=== PATIENT | female | born 1965 | race African-American/Black ===

== ENCOUNTER 2022-05-23 09:36 | Inpatient (IN) | payer MEDICARE, OTHER ==
[~2022-05-23] VITALS: Ht 182.9 cm; Wt 113.4 kg
[2022-05-23 10:12] LABS: CARBON DIOXIDE 30 mmol/L (21-32); CHLORIDE 105 mmol/L (98-107); CREATININE 0.9 mg/dL (0.6-1.3); GLUCOSE 129 mg/dL (74-106); UREA NITROGEN, BLOOD 25 mg/dL (7-18)
[2022-05-23 10:15] LABS: HEMATOCRIT 36.5 % (31.2-41.9); MEAN CORPUSCULAR VOLUME 86.8 fL (75.5-95.3); PLATELET COUNT (AUTO) 208 K/uL (179-408)
[2022-05-23 10:17] LABS: ALANINE AMINOTRANSFERASE 35 U/L (14-59); ALKALINE PHOSPHATASE 103 U/L (50-136); ASPARTATE AMINOTRANSFERASE 21 U/L (15-37); BILIRUBIN,DIRECT 0.1 mg/dL (0.0-0.2); BILIRUBIN,TOTAL 0.1 mg/dL (0.2-1.0); TOTAL PROTEIN, SERUM 8.6 g/dL (6.4-8.2)
[2022-05-23 10:19] LABS: ETHANOL < 3 MG/DL (0-0)
--- NOTE | 2022-05-23 10:19 | NUR ---
Rox silverman in ED - 05/23/22 at 1026 by NESTOR Patient is medically cleared for psych evaluation. Nicky Braxton was called, pending arrival to .
--- NOTE | 2022-05-23 10:20 | NUR ---
Notified Nicky Braxton that patient is medically cleared. Stated either her or Art will come and assess patient as soon as they can.
[2022-05-23 10:21] LABS: ACETAMINOPHEN < 2.0 ug/mL (10-30)
--- NOTE | 2022-05-23 10:22 | NUR ---
Urine collected and taken to LAB. COVID swab and MRSA swab collected and sent to LAB.
[2022-05-23 10:26] LABS: *BILIRUBIN,URIN NEGATIVE (NEGATIVE); *BLOOD, URINE NEGATIVE (NEGATIVE); *CLARITY,URINE CLEAR (CLEAR); *COLOR,URINE YELLOW (YELLOW); *KETONES,URINE NEGATIVE (NEGATIVE); *UROBILINOGEN,URINE 0.2 E.U./dl (NORMAL); LEUKOCYTE ESTERASE ,URINE NEGATIVE (NEGATIVE); NITRITE, URINE NEGATIVE (NEGATIVE); UGLUCOSE NEGATIVE (NEGATIVE)
[2022-05-23] MEDS ORDERED: LACT10SO58 PO (10:28)
[2022-05-23] MEDS ORDERED: DOCU-141 PO (10:28)
[2022-05-23] MEDS ORDERED: MULT-594 PO (10:28)
[2022-05-23] MEDS ORDERED: MIRT-93 PO (10:28)
[2022-05-23] MEDS ORDERED: ACET-2154 PO ×2 (10:28)
[2022-05-23] MEDS ORDERED: APIX5TAB PO (10:28)
[2022-05-23] MEDS ORDERED: BENZ0.5T43 PO (10:28)
[2022-05-23] MEDS ORDERED: SENN-261 PO (10:28)
[2022-05-23] MEDS ORDERED: ASCO500C18 PO (10:28)
[2022-05-23] MEDS ORDERED: ACET-73 PO (10:28)
[2022-05-23] MEDS ORDERED: LEVO25TA9 PO (10:28)
[2022-05-23] MEDS ORDERED: BISA10SU61 RC (10:28)
[2022-05-23] MEDS ORDERED: OLAN10TA3 PO (10:28)
[2022-05-23] MEDS ORDERED: ZINC1CAP3 PO (10:28)
[2022-05-23] MEDS ORDERED: OXCA150T5 PO (10:28)
[2022-05-23] MEDS ORDERED: QUET200T PO (10:28)
[2022-05-23] MEDS ORDERED: DIVA-78 PO (10:28)
[2022-05-23] MEDS ORDERED: MAGN400O6 PO (10:28)
[2022-05-23] MEDS ORDERED: LEVE1000 PO (10:28)
[2022-05-23] MEDS ORDERED: FLUO40CA49 PO (10:28)
[2022-05-23] MEDS ORDERED: FURO40TA5 PO (10:28)
[2022-05-23] MEDS ORDERED: CHOL1CRY2 PO (10:28)
[2022-05-23] MEDS ORDERED: SPIR25TA6 PO (10:28)
[2022-05-23 10:38] LABS: *AMPHETAMINE, URINE NEGATIVE (NEGATIVE); *CANNABINOID, URINE NEGATIVE (NEGATIVE); *COCCAINE, URINE NEGATIVE (NEGATIVE); *OPIATE, URINE NEGATIVE (NEGATIVE); *PHENCYCLIDINE SCREEN,URINE NEGATIVE (NEGATIVE)
--- NOTE | 2022-05-23 11:01 | NUR ---
Recieved a call from pt's conservator as well as brother, Michael. He is asking to be updated with plan of care for his sister.
--- NOTE | 2022-05-23 11:10 | NUR ---
Pt is resting w/ both eyes closed, NAD noted.
[2022-05-23] MEDS ORDERED: ACETAMINOPHEN 325 MG TABLET-SA PATIENTS-PAIN ONLY PO PRN (11:45)
[2022-05-23] MEDS ORDERED: BISACODYL 10 MG SUPP.RECT RC PRN (11:45)
[2022-05-23] MEDS ORDERED: MAGNESIUM HYDROXIDE 30 ML LIQUID UDC PO PRN ×2 (11:45→14:00)
[2022-05-23] MEDS ORDERED: ACETAMINOPHEN ES 500 MG TABLET PO PRN (11:45)
--- NOTE | 2022-05-23 11:46 | NUR ---
Art Capilla BACTERIOLOGIST FISHERY at the bedside for psych eval.
--- NOTE | 2022-05-23 12:00 | NUR ---
Pt placed on 5150 hold for GD by A Angie KELLERW. Port a Cath access removed per nursing speech pathology supervisor, Miladis. no bleeding noted at the site, pressure dressing applied.
--- NOTE | 2022-05-23 13:17 | NUR ---
Pt transfered to MHU via [facility]. Room 145A.
--- NOTE | 2022-05-23 13:20 | NUR ---
GPS: RECEIVED REPORT FROM LISA, ED RN FOR PT TO BE ADMITTED AT THE UNIT. PT FROM [facility] TO BE ADMITTED FOR GRAVE DISABILITY.
[2022-05-23 13:30] VITALS: BP 134/61
--- NOTE | 2022-05-23 13:30 | NUR ---
GPS: RECEIVED PT IN THE UNIT, WHEELED FROM ED VIA [facility]. PT QUIET, DENIES ANY PAIN, NO ANXIETY NOTED. PT WAS ASSISTED WITH TRANSFER FROM [facility] TO BED BY 6 STAFFS. PER ENDORSEMENT REPORT, PT CAME FROM [facility] VIA AMBULANCE TRANSPORTATION AND ADMITTED DUE TO INCREASED HALLUCINATIONS, SUICIDAL IDEATION AND THOUGHTS OF HURTING OTHERS. PT WAS DISORGANIZED AND VERY SLOW RESPONSE, IMPAIRED JUDGEMENT, POOR INSIGHT AND IMPULSE CONTROL, UNABLE TO PROVIDE FOR HER FOOD, [facility] AND CLOTHING DUE TO MENTAL DISORDER. PT ON FULL CODE. PER ED RN REPORT, PT HAS PSEUDO-SEIZURE EPISODE. PT ALERT AND ORIENTED TO NAME AND PLACE. DENIES PAIN OR DISCOMFORT.
[2022-05-23] MEDS ORDERED: ACETAMINOPHEN 325 MG TABLET PO PRN (14:00)
[2022-05-23] MEDS ORDERED: MAG HYDROX/AL HYDROX/SIMETH 30 ML LIQUID UDC PO PRN (14:00)
[2022-05-23] MEDS ORDERED: BLOOD SUGAR DIAGNOSTIC 1 EACH STRIP VI ONE (14:15)
--- NOTE | 2022-05-23 14:22 | NUR ---
GPS: NURSE AND STAFF ON BEDSIDE WITH ECG PERSONNEL WITNESS PT HAVING A BLANK STARE AND NOT RESPONDING TO VOICE AND STIMULI. PT HAVING AN EPISODE OF SEIZURE, PT WAS REPOSITIONED ON SIDE LYING POSITION ON BED AND PER NURSE ICE RESURFACING MACHINE OPERATORS, TO TRANSFER THE PT TO ED,WHEELED PT TO ED FOR FURTHER EVALUATION AND TREATMENT. PSYCHIATRIST AND DIE MOUNTER MADE AWARE. VITAL SIGNS ON ADMISSION TO UNIT WAS BP 134/71 T P97.3F HR82 R 16 O2SAT 98%RA.
--- NOTE | 2022-05-23 15:30 | NUR ---
GPS: PT RE-ADMITTED TO THE UNIT PER NURSING MACHINE CHAIN MAKER AND BEHAVIORAL HEALTH DIRECTOR AND MD CLEARANCE. PT WAS SEEN BY AN SUPERINTENDENT TRANSPORTATION IN THE UNIT AND PT WAS ALERT TO NAME AND PLACE. VERBALLY RESPONSIVE TO QUESTIONS ASKED. PT WAS PLEASANT AND DENIES ANY PAIN OR DISCOMFORT. SHE WAS GLAD WHEN BILINGUAL RECEPTIONIST PLACE THE BED ON SITTING POSITION REQUESTED BY PT. NO AGITATION NOTED AT THIS TIME. WILL OBSERVE PT FOR ANY EPISODE.
[2022-05-23 16:00] VITALS: BP 122/65
[2022-05-23] MEDS ORDERED: DIVALPROEX 500 MG TABLET.DR PO SCH (17:00)
[2022-05-23] MEDS ORDERED: OXCARBAZEPINE 150 MG TABLET PO SCH (17:00)
[2022-05-23] MEDS: APIXABAN 5 MG TABLET PO SCH (17:35)
[2022-05-23] MEDS: BENZTROPINE MESYLATE 0.5 MG TABLET PO SCH (17:37)
[2022-05-23] MEDS: levETIRAcetam 500 MG TABLET PO SCH (17:37)
--- NOTE | 2022-05-23 18:30 | NUR ---
GPS: WENT TO SEE PT IN THE ROOM, PT WAS QUIET AND BASICALLY ALERT AND ORIENTED AND EVENTUALLY ASK SWITCHBOARD WIRER IF SHE CAN TRANSFER TO OTHER ROOM. SWITCHBOARD WIRER ASKED PT WHY, PT ANSWERED "THERE'S SNAKES IN THE ROOM UNDER THE TABLE", RE-ORIENTED PT TO REALITY AND TURNED ON LIGHTS. BEFORE LEAVING, PT STATED "I'M JUST KIDDING, AND SHE LAUGHED".
[2022-05-23 20:45] VITALS: BP 130/79
[2022-05-23] MEDS: TEMAZEPAM 7.5 MG CAPSULE PO PRN (20:45)
[2022-05-23] MEDS: SENNOSIDES 1 TABLET PO SCH (20:45)
[2022-05-23] MEDS: LORAZEPAM 0.5 MG TABLET PO PRN (23:27)
--- NOTE | 2022-05-24 04:28 | NUR ---
Received patient in room, A&Ox2, responsive to verbal and tactile stimuli. Patient denies SI, states she's "FINE" when asked how she feels. No apparent distress this time. Patient requires maximum assistance in all aspect of care. Remains in bed d/t BLE weakness. Provide snacks w/ good appetite. Compliant with medications. Temazepam given. Effective. slept 5.30 hours during shift. Patient made statement on having seizures in her sleep. No noted seizures observed during shift. Ativan given for anxiety. Fall and seizure precautions in place. closely monitoring observed.
[2022-05-24] MEDS: LEVOTHYROXINE SODIUM 25 MCG TABLET PO SCH (06:10)
[2022-05-24 07:11] LABS: HEMATOCRIT 33.9 % (31.2-41.9); MEAN CORPUSCULAR HEMOGLOBIN 28.6 uug (24.7-32.8); MEAN CORPUSCULAR VOLUME 87.8 fL (75.5-95.3); PLATELET COUNT (AUTO) 196 K/uL (179-408)
[2022-05-24 07:30] VITALS: BP 119/71
[2022-05-24 07:34] LABS: BILIRUBIN,TOTAL 0.2 mg/dL (0.2-1.0); CREATININE 0.9 mg/dL (0.6-1.3); POTASSIUM 4.7 mmol/L (3.5-5.1)
[2022-05-24] MEDS: DOCUSATE SODIUM 100 MG CAPSULE PO SCH (08:54)
[2022-05-24] MEDS: ASCORBIC ACID 500 MG TABLET PO SCH (08:54)
[2022-05-24] MEDS: levETIRAcetam 500 MG TABLET PO SCH ×2 (08:54→17:42)
[2022-05-24] MEDS: BENZTROPINE MESYLATE 0.5 MG TABLET PO SCH ×2 (08:54→17:42)
[2022-05-24] MEDS: FUROSEMIDE 40 MG TABLET PO SCH (08:54)
[2022-05-24] MEDS: SPIRONOLACTONE 25 MG TABLET PO SCH (08:54)
[2022-05-24] MEDS: CHOLECALCIFEROL 1,000 UNIT TABLET PO SCH (08:54)
[2022-05-24] MEDS: ZINC SULFATE 220 MG CAPSULE PO SCH (08:54)
[2022-05-24] MEDS: MULTIVITAMINS,THERAPEUTIC TABLET PO SCH (08:54)
[2022-05-24] MEDS: APIXABAN 5 MG TABLET PO SCH ×2 (08:55→17:51)
[2022-05-24] MEDS: LACTULOSE 20 G/30 ML LIQUID UDC PO SCH (08:56)
[2022-05-24] MEDS ORDERED: Medication Not On Formulary EA (Multivitamins (Multivitamin) 1 TAB) PO SCH (09:00)
[2022-05-24] MEDS ORDERED: CHOLECALCIFEROL 50 MCG PO SCH (09:00)
[2022-05-24] MEDS ORDERED: Medication Not On Formulary EA (Ascorbic Acid (Vitamin C) 1 CAP) PO SCH (09:00)
--- NOTE | 2022-05-24 10:25 | NUR ---
GPS: PT RECEIVED ON BED. ALERT AND VERBALLY RESPONSIVE. OFFERED FOOD AND PT ATE INDEPENDENTLY. PT IS QUIET AND CALM. NO AGITATION OR ANXIETY NOTED. PHYSICAL THERAPIST CAME TO EVALUATE PT AND REPORTED THAT PT IS HAVING SEIZURE. UPON ASSESSMENT, PT HAD EPISODE OF PSEUDO-SEIZURE AND PT WAS OBSERVED AND MAINTAINED ON SAFETY OF BED. PT EYES SEEMS FOLLOWING DIRECTIONS OF STAFF, NOT MOVING. AFTER THE EP[ISODE, OFFERED MEDICATION AND PT TOLERATED WELL AND STATED "I LIKE ORANGE JUICE". PT SEEN BY PSYCHIATRIST AND E D TECH TODAY.
[2022-05-24] MEDS: DIVALPROEX 500 MG TABLET.DR PO SCH ×2 (11:26→20:31)
[2022-05-24] MEDS: OLANZAPINE 5 MG TABLET PO SCH ×2 (12:21→17:42)
[2022-05-24 16:00] VITALS: BP 124/70
--- NOTE | 2022-05-24 18:15 | NUR ---
GPS: PT ISOLATIVE, STAYING IN THE ROOM THE WHOLE TIME. PT WITH EPISODE OF SCREAMING A WAY TO GET ATTENTION. ADVISED PT NOT TO SCREAM AND BE PATIENT. PT ABLE TO UNDERSTAND AND APOLOGIZED AFTERWARDS. PT HAVE BIG APPETITE, ASKING FOR SNACKS. COMPLIANT WITH CARE AND MEDS. BED BATH GIVEN AND TOLERATED WELL BY PT. NO AGITATION NOTED.
[2022-05-24 19:58] VITALS: BP 128/79
[2022-05-24] MEDS: SENNOSIDES 1 TABLET PO SCH (20:31)
[2022-05-24] MEDS: LORAZEPAM 0.5 MG TABLET PO PRN (20:31)
--- NOTE | 2022-05-25 05:58 | NUR ---
This patient screamed , clapped her hands and was demanding all during the night. No regard for her room mates that were trying to sleep. The patient slept 4.00 total. Safety Stratiges are in place. Turning and repositioning was encouraged.
[2022-05-25] MEDS: LEVOTHYROXINE SODIUM 25 MCG TABLET PO SCH (06:03)
[2022-05-25 07:30] VITALS: BP 105/69
[2022-05-25] MEDS: CHOLECALCIFEROL 1,000 UNIT TABLET PO SCH (08:53)
[2022-05-25] MEDS: DOCUSATE SODIUM 100 MG CAPSULE PO SCH (08:53)
[2022-05-25] MEDS: ZINC SULFATE 220 MG CAPSULE PO SCH (08:53)
[2022-05-25] MEDS: OLANZAPINE 5 MG TABLET PO SCH ×2 (08:53→20:37)
[2022-05-25] MEDS: MULTIVITAMINS,THERAPEUTIC TABLET PO SCH (08:53)
[2022-05-25] MEDS: levETIRAcetam 500 MG TABLET PO SCH ×2 (08:53→17:04)
[2022-05-25] MEDS: BENZTROPINE MESYLATE 0.5 MG TABLET PO SCH ×2 (08:53→17:04)
[2022-05-25] MEDS: LACTULOSE 20 G/30 ML LIQUID UDC PO SCH (08:53)
[2022-05-25] MEDS: ASCORBIC ACID 500 MG TABLET PO SCH (08:53)
[2022-05-25] MEDS: DIVALPROEX 500 MG TABLET.DR PO SCH ×3 (08:53→17:04)
[2022-05-25] MEDS: APIXABAN 5 MG TABLET PO SCH ×2 (08:54→17:15)
[2022-05-25] MEDS: SPIRONOLACTONE 25 MG TABLET PO SCH (08:55)
[2022-05-25] MEDS: ACETAMINOPHEN 325 MG TABLET PO PRN (08:57)
[2022-05-25] MEDS: FUROSEMIDE 40 MG TABLET PO SCH (08:57)
--- NOTE | 2022-05-25 10:56 | NUR ---
KIRTI Initial Discharge Note: Pt currently resides at [facility] located at [address] [address] ([phone]). Per pt's brother/conservator, Michael ([phone]) stated to SW that he would like her to discharge back to [facility] to continue receiving rehab upon discharge. Michael stated he is agreeable to alternative rehab placements as well with his permission in the event that [facility] is not able to accept the pt prior to discharge. KIRTI spoke with Tanner in admissions who stated that pt as of right now does not have a bed hold and for this program writer to follow-up next week. KIRTI will continue to work with pt, MD Michael and the facility to ensure a safe and proper discharge plan.
--- NOTE | 2022-05-25 10:59 | NUR ---
Firearms Report: Photo Mask Cleaner completed and submitted a [employer] firearms report for 5150 grave disability certifications. A copy of report has been placed in patient chart.
--- NOTE | 2022-05-25 10:59 | NUR ---
SW Family Contact: SW contacted pt's brother, Michael (conservator) [phone] and discussed pt's treatment plan and discharge plan. Michael stated that he would like the pt to return to her assisted living, [facility] ([phone]) after she receives rehab at [facility] [phone]. SW stated that this keno writer/runner will help pt with her discharge plan to [facility] or an alternative placement approved by Michael if needed. This SW informed Michael that this SW will inform the facility the pt discharges to that the intermediate school teacher plan for the pt per Michael is to return to her assisted living after rehab. Michael was thankful and agreeable. Michael also stated to SW that pt has been disabled since she was born. iMchael stated that pt can have manipulative behavior and seeks staffs attention at all times. This SW was appreciative for the information and stated to Michael that this SW will be in contact with further information. Michael was thankful and agreeable.
--- NOTE | 2022-05-25 11:15 | NUR ---
GPS: PT ON BED, ALERT AND ORIENTED TO NAME ONLY. POOR IMPULSE AND JUDGMENT. PT VERY DEMANDING AND ATTENTION SEEKER. PT SCREAMS TO GET ATTENTION AND SHE LIKES TO REQUEST AND GET IT SOON POSSIBLE. PT DENIES PAIN OR DISCOMFORT. DID SOME DRAWINGS AND OTHER ACTIVITIES. PT COMPLIANT WITH CARE AND MEDS, NO AGITATION NOTED AT THIS TIME. PSYCHIATRIST SEEN PT TODAY.
[2022-05-25 16:16] VITALS: BP 121/85
--- NOTE | 2022-05-25 17:42 | NUR ---
GPS: PT STAYED ON BED THE WHOLE DAY. UNABLE TO AMBULATE AND TRANSFER. ASSISTED TO REPOSITION PT. WITH EPISODE OF SCREAMING TO GET ATTENTION. COMPLIANT WITH CARE AND MEDICATIONS. DOES NOT GIVE A MEANINGFUL CONVERSATION. DEMANDING AT TIMES. POOR JUDGMENT AND IMPULSE. NO AGITATION NOTED AT THIS TIME.
[2022-05-25 20:00] VITALS: BP 107/65
--- NOTE | 2022-05-25 20:30 | NUR ---
RECEIVED PATIENT IN HER ROOM IN BED. SHE IS NOTED A/O X 1 AND 2. SHE IS REFUSING TO ANSWER ANY QUESTIONS FORM THIS ACID FILLER. PATIENT NOTED PRETENDING TO SHAKE AND SHE THEN PRETEND TO PAST OUT. WHEN SHE WAS TOLD HER V/S WERE ALL NORMAL SHE OPEN HER EYES AND STATED ASKING FOR FOOD. PATIENT IS NOTED MANIPULATIVE, ATTENTION SEEKER. SHE IS YELLING AT TIME WHEN SHE DOES NOT GET HER WAY. HER MOOD IS IRRITABLE, AFFECT IS FLAT. SHE IS A POOR HISTORIAN. SHE REQUIRED REDIRECTION AND REALITY CHECKS. PATIENT IN NO DISTRESS. PATIENT IS REASSURED FOR HER SAFETY. SAFETY AND FALL PRECAUTIONS ARE IN PLACE. V/S STABLE. SHE WAS GIVEN PO FLUIDS AND SNACKS. WILL CONTINUE TO MONITOR.
[2022-05-25] MEDS: SENNOSIDES 1 TABLET PO SCH (20:37)
[2022-05-26] MEDS: LEVOTHYROXINE SODIUM 25 MCG TABLET PO SCH (06:41)
[2022-05-26 07:39] VITALS: BP 131/59
[2022-05-26] MEDS: FUROSEMIDE 40 MG TABLET PO SCH (08:17)
[2022-05-26] MEDS: CHOLECALCIFEROL 1,000 UNIT TABLET PO SCH (08:17)
[2022-05-26] MEDS: levETIRAcetam 500 MG TABLET PO SCH ×2 (08:17→16:32)
[2022-05-26] MEDS: SPIRONOLACTONE 25 MG TABLET PO SCH (08:18)
[2022-05-26] MEDS: ASCORBIC ACID 500 MG TABLET PO SCH (08:18)
[2022-05-26] MEDS: DOCUSATE SODIUM 100 MG CAPSULE PO SCH (08:18)
[2022-05-26] MEDS: DIVALPROEX 500 MG TABLET.DR PO SCH ×3 (08:18→16:34)
[2022-05-26] MEDS: ZINC SULFATE 220 MG CAPSULE PO SCH (08:18)
[2022-05-26] MEDS: APIXABAN 5 MG TABLET PO SCH ×2 (08:20→16:33)
[2022-05-26] MEDS: LACTULOSE 20 G/30 ML LIQUID UDC PO SCH (08:24)
[2022-05-26] MEDS: OLANZAPINE 5 MG TABLET PO SCH ×2 (08:26→20:18)
[2022-05-26] MEDS: MULTIVITAMINS,THERAPEUTIC TABLET PO SCH (08:27)
[2022-05-26] MEDS: BENZTROPINE MESYLATE 0.5 MG TABLET PO SCH ×2 (08:30→16:32)
[2022-05-26] MEDS: LORAZEPAM 0.5 MG TABLET PO PRN (12:21)
[2022-05-26 15:55] VITALS: BP 136/75
--- NOTE | 2022-05-26 18:52 | NUR ---
received patient in bed, A&0x2, responsive to name. Patient is yelling and crying at the start of the shift, checked on patient, patient asking to be out of bed and go outside. reminded patient that is unsafe given her condition, patient unable to comprehend concept and continue reasoning out that she wants to be out of bed. Patient is noted to be needy and seeks attention when needs are not met. Crying spells and childlike behavior noted. Set limits with patient. Patient seen by MD dubon, with order to transfer on the chair. Med compliant with medications. Patient safely place on the chair, with pattern chart writer and TRANSPORTATION OFFICER assist, able to stand up at this time. patient attended group therapy. closely monitoring observed with patient. Patient is with good appetite noted. @ @[id number] attempt to transfer her to bed, patient slips on the floor. Assisted back to chair with 5 people assist. patient denies of any pain at this time. safely transferred back to bed. safety strategies in place.
[2022-05-26] MEDS: SENNOSIDES 1 TABLET PO SCH (20:18)
[2022-05-26 20:48] VITALS: BP 145/82
--- NOTE | 2022-05-26 23:56 | NUR ---
GPS: Pt.is asleep at this time. In no form of distress noted. Re-directed and re-assured prn. Limit setting provided by staff prn. Will continue to monitor behavior.
[2022-05-27] MEDS: REMEDY ESSENTIAL ZINC PASTE 113 GM TOP PRN (01:11)
[2022-05-27] MEDS: LEVOTHYROXINE SODIUM 25 MCG TABLET PO SCH (06:15)
[2022-05-27 07:30] VITALS: BP 123/80
[2022-05-27] MEDS: ASCORBIC ACID 500 MG TABLET PO SCH (08:55)
[2022-05-27] MEDS: CHOLECALCIFEROL 1,000 UNIT TABLET PO SCH (08:55)
[2022-05-27] MEDS: levETIRAcetam 500 MG TABLET PO SCH ×2 (08:55→17:00)
[2022-05-27] MEDS: DIVALPROEX 500 MG TABLET.DR PO SCH ×3 (08:55→17:32)
[2022-05-27] MEDS: FUROSEMIDE 40 MG TABLET PO SCH (08:55)
[2022-05-27] MEDS: LORAZEPAM 0.5 MG TABLET PO PRN ×2 (08:55→19:41)
[2022-05-27] MEDS: MULTIVITAMINS,THERAPEUTIC TABLET PO SCH (08:55)
[2022-05-27] MEDS: BENZTROPINE MESYLATE 0.5 MG TABLET PO SCH ×2 (08:55→17:32)
[2022-05-27] MEDS: DOCUSATE SODIUM 100 MG CAPSULE PO SCH (08:55)
[2022-05-27] MEDS: SPIRONOLACTONE 25 MG TABLET PO SCH (08:58)
[2022-05-27] MEDS: LACTULOSE 20 G/30 ML LIQUID UDC PO SCH (08:58)
[2022-05-27] MEDS: OLANZAPINE 5 MG TABLET PO SCH ×2 (09:10→20:11)
[2022-05-27] MEDS: ZINC SULFATE 220 MG CAPSULE PO SCH (09:10)
[2022-05-27] MEDS: APIXABAN 5 MG TABLET PO SCH ×2 (09:10→17:29)
--- NOTE | 2022-05-27 15:07 | NUR ---
patient is alert and oriented x2, needy and attention seeking, patient noted had pseudoseizure tried to get attention from nurses . with episode of yelling and screaming at time prn Ativan given as ordered.1 to 1 activity given at bedside will continue close monitoring.
[2022-05-27 15:36] VITALS: BP 113/65
[2022-05-27] MEDS: ACETAMINOPHEN 325 MG TABLET PO PRN (19:41)
[2022-05-27 20:00] VITALS: BP 118/72
[2022-05-27] MEDS: SENNOSIDES 1 TABLET PO SCH (20:11)
--- NOTE | 2022-05-27 20:30 | NUR ---
RECEIVED PATENT TO CARE. SHE IS PRESENTLY IN BED. SHE IS NOTED A/O X2. SHE IS NOTED YELLING. UPON APPROACHED SHE STATED, "I WANT TO GET UP AND GO OUTSIDE". THAN SHE STATED, "I HAVE PAIN IN MY BACK". PATIENT IS TANGENTAL. SHE IS ATTENTION SEEKER AND MANIPULATIVE. SHE REQUIRES MULTIPLE REDIRECTION AND REASSURANCE. ATIVAN 0.5MG PO PRN AND TYLENOL 650MG PO PRN WAS GIVEN. PATIENT IS REASSURED FOR HIS SAFETY. SAFETY AND FALL PRECAUTIONS ARE IN PLACE. V/S ARE STABLE, HER BREATHING IS UNLABORED AND EVEN. PT IN NO DISTRESS. PO FLUIDS AND SNACKS WERE GIVEN TO PATIENT. WILL CONTINUE TO MONITOR.
[2022-05-27] MEDS: TEMAZEPAM 7.5 MG CAPSULE PO PRN (21:58)
[2022-05-28] MEDS: REMEDY ESSENTIAL ZINC PASTE 113 GM TOP PRN (01:26)
[2022-05-28] MEDS: LEVOTHYROXINE SODIUM 25 MCG TABLET PO SCH (06:27)
--- NOTE | 2022-05-28 06:56 | NUR ---
patient slept for approx 8.30 hrs through the night. all her needs were met, will continue to monitor.
[2022-05-28 07:42] VITALS: BP 124/69
[2022-05-28] MEDS: OLANZAPINE 5 MG TABLET PO SCH ×2 (08:43→20:15)
[2022-05-28] MEDS: BENZTROPINE MESYLATE 0.5 MG TABLET PO SCH ×2 (08:44→17:36)
[2022-05-28] MEDS: DIVALPROEX 500 MG TABLET.DR PO SCH ×3 (08:44→17:36)
[2022-05-28] MEDS: ASCORBIC ACID 500 MG TABLET PO SCH (08:44)
[2022-05-28] MEDS: levETIRAcetam 500 MG TABLET PO SCH ×2 (08:44→17:36)
[2022-05-28] MEDS: CHOLECALCIFEROL 1,000 UNIT TABLET PO SCH (08:44)
[2022-05-28] MEDS: FUROSEMIDE 40 MG TABLET PO SCH (08:44)
[2022-05-28] MEDS: DOCUSATE SODIUM 100 MG CAPSULE PO SCH (08:44)
[2022-05-28] MEDS: ZINC SULFATE 220 MG CAPSULE PO SCH (08:44)
[2022-05-28] MEDS: APIXABAN 5 MG TABLET PO SCH ×2 (08:46→17:37)
[2022-05-28] MEDS: LACTULOSE 20 G/30 ML LIQUID UDC PO SCH (09:00)
[2022-05-28] MEDS: SPIRONOLACTONE 25 MG TABLET PO SCH (09:12)
[2022-05-28] MEDS: MULTIVITAMINS,THERAPEUTIC TABLET PO SCH (09:12)
[2022-05-28] MEDS: LORAZEPAM 0.5 MG TABLET PO PRN (13:18)
[2022-05-28] MEDS: ACETAMINOPHEN 325 MG TABLET PO PRN (13:18)
[2022-05-28 16:17] VITALS: BP 123/57
--- NOTE | 2022-05-28 16:22 | NUR ---
KIRTI Family Contact: KIRTI contacted pt's brother, Michael (conservator) [phone] and discussed pt's treatment plan and discharge plan for this . KIRTI provided details on two fdc facilities such as [facility] and [facility] per psychiatrists request for pt's discharge on . Michael stated he will review and contact this SW to confirm.
--- NOTE | 2022-05-28 18:48 | NUR ---
Received patient in room, A&Ox2, responsive to verbal and tactile stimuli. Patient denied any SI/HI. No apparent distress this time. Patient requires maximum assistance in all aspect of care. Remains in bed d/t BLE weakness. Provide snacks w/ good appetite. Compliant with medications. No noted seizures observed during shift. Fall and seizure precautions in place. closely monitoring observed.
[2022-05-28 19:57] VITALS: BP 132/71
[2022-05-28] MEDS: SENNOSIDES 1 TABLET PO SCH (20:15)
[2022-05-29] MEDS: LEVOTHYROXINE SODIUM 25 MCG TABLET PO SCH (06:13)
[2022-05-29 07:30] VITALS: BP 123/72
[2022-05-29] MEDS: MULTIVITAMINS,THERAPEUTIC TABLET PO SCH (08:18)
[2022-05-29] MEDS: ZINC SULFATE 220 MG CAPSULE PO SCH (08:19)
[2022-05-29] MEDS: OLANZAPINE 5 MG TABLET PO SCH ×2 (08:19→20:03)
[2022-05-29] MEDS: ASCORBIC ACID 500 MG TABLET PO SCH (08:19)
[2022-05-29] MEDS: CHOLECALCIFEROL 1,000 UNIT TABLET PO SCH (08:19)
[2022-05-29] MEDS: BENZTROPINE MESYLATE 0.5 MG TABLET PO SCH ×2 (08:19→17:35)
[2022-05-29] MEDS: FUROSEMIDE 40 MG TABLET PO SCH (08:19)
[2022-05-29] MEDS: levETIRAcetam 500 MG TABLET PO SCH ×2 (08:19→17:35)
[2022-05-29] MEDS: DIVALPROEX 500 MG TABLET.DR PO SCH ×3 (08:19→17:35)
[2022-05-29] MEDS: SPIRONOLACTONE 25 MG TABLET PO SCH (08:19)
[2022-05-29] MEDS: DOCUSATE SODIUM 100 MG CAPSULE PO SCH (08:19)
[2022-05-29] MEDS: APIXABAN 5 MG TABLET PO SCH ×2 (08:21→17:37)
[2022-05-29] MEDS: LACTULOSE 20 G/30 ML LIQUID UDC PO SCH (08:22)
--- NOTE | 2022-05-29 10:33 | NUR ---
GPS: PT 14D PCH DONE WITH GRAVE DISABILITY ONLY PROBABLE CAUSE. PT PARTICIPATED IN THE HEARING. PT WAS COOPERATIVE WITH HEARING
[2022-05-29 15:39] VITALS: BP 121/72
--- NOTE | 2022-05-29 16:06 | NUR ---
KIRTI Family Contact: KIRTI contacted pt's brother, Michael (conservator) [phone] and discussed pt's treatment plan and discharge plan for this . Yonny is aware and agreeable to choose a discharge location for the pt as it is imperative prior to discharge. KIRTI discussed the two options again that the psychiatrist had referred. KIRTI stated this senior grant writer has referred pt to [facility] and [facility] per psychiatrists request. Michael stated that he will review the facilities and discuss with the SW in the AM. This SW stated that this senior grant writer will call to confirm a safe discharge plan on 05/30/22 for discharge on . Michael is aware and agreeable.
--- NOTE | 2022-05-29 18:17 | NUR ---
GPS: PT WAS HAPPY SEATED ON CHAIR PT WAS BA Addendum: 05/29/22 at 1826 by SATYA AWAN RN ABLE TO ATTEND GROUP THERAPY. NO AGITATION, NO SCREAMING AT THIS TIME. COMPLIANT WITH CARE AND MEDS. PT IS ON MAXIMUM ASSIST WITH ADL'S AND TRANSFER. ABLE TO EAT WITH ASSISTANCE AT TIMES.
[2022-05-29] MEDS: SENNOSIDES 1 TABLET PO SCH (20:03)
[2022-05-29] MEDS: ATORVASTATIN 10 MG TABLET PO SCH (20:13)
[2022-05-29 20:21] VITALS: BP 116/57
[2022-05-29] MEDS: REMEDY ESSENTIAL ZINC PASTE 113 GM TOP PRN (21:08)
[2022-05-30] MEDS: LEVOTHYROXINE SODIUM 25 MCG TABLET PO SCH (06:26)
[2022-05-30 07:30] VITALS: BP 105/60
[2022-05-30] MEDS: OLANZAPINE 5 MG TABLET PO SCH ×2 (08:27→21:28)
[2022-05-30] MEDS: ZINC SULFATE 220 MG CAPSULE PO SCH (08:27)
[2022-05-30] MEDS: FUROSEMIDE 40 MG TABLET PO SCH (08:27)
[2022-05-30] MEDS: BENZTROPINE MESYLATE 0.5 MG TABLET PO SCH ×2 (08:27→17:47)
[2022-05-30] MEDS: levETIRAcetam 500 MG TABLET PO SCH ×2 (08:27→17:47)
[2022-05-30] MEDS: CHOLECALCIFEROL 1,000 UNIT TABLET PO SCH (08:27)
[2022-05-30] MEDS: ASCORBIC ACID 500 MG TABLET PO SCH (08:27)
[2022-05-30] MEDS: DIVALPROEX 500 MG TABLET.DR PO SCH ×3 (08:27→17:47)
[2022-05-30] MEDS: MULTIVITAMINS,THERAPEUTIC TABLET PO SCH (08:27)
[2022-05-30] MEDS: DOCUSATE SODIUM 100 MG CAPSULE PO SCH (08:28)
[2022-05-30] MEDS: LACTULOSE 20 G/30 ML LIQUID UDC PO SCH (08:28)
[2022-05-30] MEDS: SPIRONOLACTONE 25 MG TABLET PO SCH (08:28)
[2022-05-30] MEDS: APIXABAN 5 MG TABLET PO SCH ×2 (08:31→17:48)
[2022-05-30] MEDS: LORAZEPAM 0.5 MG TABLET PO PRN (08:41)
--- NOTE | 2022-05-30 09:43 | NUR ---
GPS: PT WITH EPISODE OF SCREAMING WHEN NEEDS ARE NOT GIVEN INSTANTLY. PT WAS ON BED SCREAMING AND REQUESTING TO BE ON A CHAIR. AFTER TRANSFERRING TO CHAIR, PT WAS SATISFIED. COMPLIANT WITH CARE AND MEDS. DENIES ANY PAIN OR DISCOMFORT. NO AGITATION NOTED AT THIS TIME.
[2022-05-30 16:00] VITALS: BP 118/66
--- NOTE | 2022-05-30 18:10 | NUR ---
GPS: COVID TEST DONE FOR PT FOR POSSIBLE DISCHARGE TOMORROW TO SNF. PT SMILED, HAPPY TO KNOW THAT SHE'LL BE DISCHARGE TOMORROW. PT ABLE TO FEED SELF. ON CONGRUENT MOOD AND AFFECT. COMPLIANT WITH CARE AND MEDS. TOTAL ASSIST WITH ADL'S.
[2022-05-30 20:00] VITALS: BP 118/66
[2022-05-30] MEDS: SENNOSIDES 1 TABLET PO SCH (21:28)
[2022-05-30] MEDS: ATORVASTATIN 10 MG TABLET PO SCH (21:29)
[2022-05-30] MEDS: TEMAZEPAM 7.5 MG CAPSULE PO PRN (22:45)
--- NOTE | 2022-05-31 05:02 | NUR ---
Received to care, up in soraya chair, pleasant upon approach. Compliant with medications, bedtime snack given. Assisted to bed. PRN Restoril given at 2245 for insomnia, and has been asleep, ever since. No distress noted. Will continue to monitor closely for safety.
[2022-05-31] MEDS: LEVOTHYROXINE SODIUM 25 MCG TABLET PO SCH (06:44)
[2022-05-31] MEDS: LORAZEPAM 0.5 MG TABLET PO PRN ×2 (06:44→15:44)
--- NOTE | 2022-05-31 06:48 | NUR ---
PRN Ativan given for excessive yelling
[2022-05-31 07:30] VITALS: BP 129/72
[2022-05-31] MEDS: ZINC SULFATE 220 MG CAPSULE PO SCH (08:50)
[2022-05-31] MEDS: CHOLECALCIFEROL 1,000 UNIT TABLET PO SCH (08:50)
[2022-05-31] MEDS: DIVALPROEX 500 MG TABLET.DR PO SCH ×3 (08:50→16:16)
[2022-05-31] MEDS: MULTIVITAMINS,THERAPEUTIC TABLET PO SCH (08:50)
[2022-05-31] MEDS: ASCORBIC ACID 500 MG TABLET PO SCH (08:50)
[2022-05-31] MEDS: FUROSEMIDE 40 MG TABLET PO SCH (08:50)
[2022-05-31] MEDS: levETIRAcetam 500 MG TABLET PO SCH ×2 (08:50→16:17)
[2022-05-31] MEDS: OLANZAPINE 5 MG TABLET PO SCH ×2 (08:50→20:17)
[2022-05-31] MEDS: BENZTROPINE MESYLATE 0.5 MG TABLET PO SCH ×2 (08:50→16:16)
[2022-05-31] MEDS: DOCUSATE SODIUM 100 MG CAPSULE PO SCH (08:50)
[2022-05-31] MEDS: SPIRONOLACTONE 25 MG TABLET PO SCH (08:51)
[2022-05-31] MEDS: LACTULOSE 20 G/30 ML LIQUID UDC PO SCH (08:55)
[2022-05-31] MEDS: APIXABAN 5 MG TABLET PO SCH ×2 (08:56→16:33)
--- NOTE | 2022-05-31 11:33 | NUR ---
GPS: RECEIVED PT ON BED WITH EPISODE OF CRYING SPELLS AND SCREAMING DURING THE START OF SHIFT PT WANTED TO BE TRANSFERRED TO CHAIR. PT WAS REDIRECTABLE FOR A SHORT SPAN OF TIME BUT NEEDS REDIRECTION ALL THE TIME. PT WAS GLAD THAT SHE'LL BE DISCHARGE TODAY, ASKING WHAT TIME. EXPLAINED TO HER TO JUST WAIT AND RELAX. PT HAS GOOD APPETITE. MINIMUM PARTICIPATION WITH GROUP THERAPY. NO AGITATION NOTED AT THIS TIME. DENIES PAIN OR DISCOMFORT.
[2022-05-31 15:11] VITALS: BP 129/66
--- NOTE | 2022-05-31 16:06 | NUR ---
GPS: PT WITH CRYING SPELLS, A BIT LOUD, PT FRUSTRATED ABOUT DISCHARGE NOT HAPPENING. EXPLAINED TO PT THAT AMBULANCE IS COMING TO PICK HER UP TONIGHT AT 8PM. [facility] CONFIRMED AND SPOKE WITH ELIZABETH. PT WAS GIVEN ATIVAN AWHILE AGO AND TOLERATED WELL.
--- NOTE | 2022-05-31 16:19 | NUR ---
KIRTI Discharge Note: Pt will be discharged to [facility] located at [id number] [place] [phone] ([phone]) via ambulance transportation at 8PM. KIRTI spoke with [facility] ([phone]) who state they are ready to accept the patient today. Pt is aware and agreeable with discharge plans. Pts DPOA and brother, Michael ([phone]) is aware and agreeable with the discharge plan. Pt is alert and oriented x4, is unable to plan for self-care at this time; however, is willing to accept care at SNF. Pt denies any suicidal or homicidal ideation. Pt will follow-up at the facility with Psychiatrist, Dr. Young ([phone]) and Passenger Solicitor, Dr. Fonseca. Pt presents with calm mood and congruent affect. PHARMACY: [facility] [phone]) [address] [place] [address].
[2022-05-31] MEDS: SENNOSIDES 1 TABLET PO SCH (20:17)
[2022-05-31] MEDS: ATORVASTATIN 10 MG TABLET PO SCH (20:17)
--- NOTE | 2022-05-31 20:37 | NUR ---
Discharged to [facility] via [facility]. Bedtime medications were given prior to discharge. Report was given to Saurabh, from [facility]. She left in stable condition, via bariatric gurney, in no acute distress.
== END 2022-05-31 20:43 | DRG 885 ==
LOC: ER 09:36 → GPS 13:07
PROVIDERS: ADMIT Psychiatry & Neurology Psychosomatic Medicine; ATTEND Nurse Practitioner Acute Care
DX: F25.0 Schizoaffective disorder, bipolar type (principal); I11.0 Hypertensive heart disease with heart failure; E44.1 Mild protein-calorie malnutrition; L97.829 Non-pressure chronic ulcer of other part of left lower leg with unspecified severity; L97.819 Non-pressure chronic ulcer of other part of right lower leg with unspecified severity; G93.49 Other encephalopathy; E66.01 Morbid (severe) obesity due to excess calories; Z68.33 Body mass index [BMI] 33.0-33.9, adult; E03.9 Hypothyroidism, unspecified; E66.9 Obesity, unspecified; E78.5 Hyperlipidemia, unspecified; E86.1 Hypovolemia; F60.3 Borderline personality disorder; G40.909 Epilepsy, unspecified, not intractable, without status epilepticus; I48.91 Unspecified atrial fibrillation; I50.9 Heart failure, unspecified; Z95.0 Presence of cardiac pacemaker; Z20.822 Contact with and (suspected) exposure to COVID-19; Z79.01 Long term (current) use of anticoagulants; Z73.6 Limitation of activities due to disability
CPT/HCPCS: 36415; 70450; 85025; 93005; 97161; A4663; G0480

== ENCOUNTER 2022-05-23 14:23 | Emergency (ER) | payer MEDICARE, OTHER ==
[~2022-05-23 14:23] MED LIST: ACET-2154 PO; ACET-73 PO; APIX5TAB PO; ASCO500C18 PO; BENZ0.5T43 PO; BISA10SU61 RC; CHOL1CRY2 PO; DIVA-78 PO; DOCU-141 PO; FLUO40CA49 PO; FURO40TA5 PO; LACT10SO58 PO; LEVE1000 PO; LEVO25TA9 PO; MAGN400O6 PO; MIRT-93 PO; MULT-594 PO; OLAN10TA3 PO; OXCA150T5 PO; QUET200T PO; SENN-261 PO; SPIR25TA6 PO; ZINC1CAP3 PO
--- NOTE | 2022-05-23 15:13 | NUR ---
Registered by mistake, not ER pt.
== END 2022-05-23 15:17 | disposition left against medical advice (07) ==
LOC: ER 14:23
DX: Z53.21 Procedure and treatment not carried out due to patient leaving prior to being seen by health care provider (principal)
CPT/HCPCS: A4663